=== PATIENT | male | born 1980 | race Hispanic/Latino ===

== ENCOUNTER 2025-02-05 04:41 | Emergency (ER) | payer SELFPAY ==
[2025-02-05] MEDS ORDERED: Boostrix 0.5 ML (Tdap) VIAL (>/=7 yrs of age) ONE (05:02)
[2025-02-05] MEDS ORDERED: Amoxicillin/Potassium Clav 875 MG TAB ONE (06:34)
== END 2025-02-05 06:40 | disposition home or self-care (01) ==
LOC: NAV ERS 04:41
DX: S67.192A Crushing injury of right middle finger, initial encounter (principal); S62.632B Displaced fracture of distal phalanx of right middle finger, initial encounter for open fracture; F17.210 Nicotine dependence, cigarettes, uncomplicated; Z23 Encounter for immunization; W23.0XXA Caught, crushed, jammed, or pinched between moving objects, initial encounter
CPT/HCPCS: 28660; 90471; 90715; J3490

== ENCOUNTER 2025-02-05 22:33 | Emergency (ER) | payer SELFPAY ==
[2025-02-05] MEDS ORDERED: HYDROcodone/Acetaminophen 5/325 mg Tablet ONE (22:49)
== END 2025-02-05 23:08 | disposition home or self-care (01) ==
LOC: NAV ERS 22:33
DX: G89.18 Other acute postprocedural pain (principal); M79.644 Pain in right finger(s); F17.210 Nicotine dependence, cigarettes, uncomplicated